=== PATIENT | male | born 1950 | race Caucasian/White ===

== ENCOUNTER 2019-01-09 08:06 | Day surgery (SDC) | payer MEDICARE ==
[~2019-01-09] VITALS: Ht 177.8 cm; Wt 101.0 kg
[~2019-01-09 08:06] MED LIST: ACCURETIC 12.51 TA1 PO; AMOXICILLIN 8751 TAB PO; ASPIRIN 32325 MG/TA1 PO; ASPIRIN E.C. 8181 MG PO; ATENOLOL100 MG PO; BYSTOLIC10 MG PO; CARDIZEM CD 24240 MG PO; CARTIA XT240 MG PO; DOXYCYCLINE 10100 MG PO; ELIQUIS 5MG PO; LEVAQUIN 750MG750 M1 PO; LIPITOR 10MG10 MG PO; LISINOPRIL20 MG PO; MEVACOR40 MG PO; NORVASC 10MG10 MG PO; PREDNISONE10 MG PO; PRINIVIL10 MG PO; PRINIVIL20 MG PO; PROVENTIL0.09 MG/A1 IH; RT ADVAIR 228 DISKUS IH; RT SPIRIVA18 MCG IH; SLEEP AID; TENORMIN100 MG PO; TRIAMTERENE/HCT1 TAB PO; TUDORZA IH; [UNRECOGNIZED DRUG - REMARK]
[2019-01-09 08:30] VITALS: BP 164/88; PULSE 71; TEMP 98.9
[2019-01-09 08:40] LABS: HEMATOCRIT 39.6 % (42.0-52.0); MEAN CELL VOLUME 94 fl (80.0-100.0); MEAN CORPUSCULAR HEMOGLOBIN 31 pg (27.0-31.0); MEAN CORPUSCULAR HGB CONC 33 g/dl (33.0-37.0); MEAN PLATELET VOLUME 9.1 fl (7.4-10.4); PLATELET COUNT 370 K/mm3 (130-400); RED BLOOD COUNT 4.22 M/mm3 (4.20-5.60); REDCELL DISTRIBUTION WIDTH-CV 13.9 % (11.5-14.5)
[2019-01-09 08:48] LABS: INR 1.9 (0.8-3.0); PROTHROMBIN TIME 22.5 SECONDS (9.7-12.8)
[2019-01-09] MEDS ORDERED: ASPIRIN 32325 MG/TAB PO (08:50)
[2019-01-09 08:52] LABS: CALCIUM 9.3 mg/dL (8.4-10.2); CREATININE, serum 0.94 (0.66-1.25); MAGNESIUM 2.1 mg/dL (1.6-2.3)
[2019-01-09] MEDS ORDERED: ELIQUIS 5MG PO (08:52)
[2019-01-09 09:22] LABS: THYROID STIMULATING HORMONE 2.85 uIU/mL (0.465-4.680)
[2019-01-09] MEDS ORDERED: COUMADIN 1010 MG/TAB PO (09:27)
[2019-01-09] MEDS ORDERED: TAMBOCOR 1100 MG/TAB PO (09:28)
[2019-01-09 09:35] VITALS: BP 134/79; PULSE 61
--- NOTE | 2019-01-09 09:35 | NUR ---
CV complete and report received from [facility]al[facility] medical laboratory technician RN. Pt resting well in bed.
[2019-01-09 09:50] VITALS: BP 134/79; BP 154/83; PULSE 61; PULSE 65
--- NOTE | 2019-01-09 10:00 | NUR ---
Pt has ambulated, voided and pat PO intake s n/v. PIV removed with catheter intact.
[2019-01-09 10:05] VITALS: BP 154/83; BP 164/90; PULSE 65; PULSE 67
--- NOTE | 2019-01-09 10:30 | NUR ---
Pt discharted per w/c by nurse with friend
[2019-01-11] MEDS ORDERED: COUMADIN 1010 MG/TAB PO (18:07)
== END 2019-01-09 13:14 | disposition home or self-care (01) ==
LOC: COL.CAR 08:06
PROVIDERS: Internal Medicine Cardiovascular Disease
DX: I48.1 Persistent atrial fibrillation (principal); I11.9 Hypertensive heart disease without heart failure; I08.1 Rheumatic disorders of both mitral and tricuspid valves; E78.2 Mixed hyperlipidemia; E87.1 Hypo-osmolality and hyponatremia; J18.9 Pneumonia, unspecified organism; J44.9 Chronic obstructive pulmonary disease, unspecified; K56.699 Other intestinal obstruction unspecified as to partial versus complete obstruction; K21.9 Gastro-esophageal reflux disease without esophagitis; M25.512 Pain in left shoulder; E66.9 Obesity, unspecified; D64.9 Anemia, unspecified; F10.10 Alcohol abuse, uncomplicated; Z79.899 Other long term (current) drug therapy; Z79.01 Long term (current) use of anticoagulants; Z79.82 Long term (current) use of aspirin; Z68.31 Body mass index [BMI] 31.0-31.9, adult; Z86.19 Personal history of other infectious and parasitic diseases
CPT/HCPCS: J2704

== ENCOUNTER 2019-01-12 20:03 | Outpatient (RCR) | payer MEDICARE ==
[2019-01-11 17:38] VITALS: BP 152/80; PULSE 70; TEMP 99.2
[~2019-01-12] VITALS: Ht 177.8 cm; Wt 100.6 kg
[2019-01-12 08:27] VITALS: BP 142/67; PULSE 61; TEMP 98.5
[~2019-01-12 20:03] MED LIST changes: +ASPIRIN 32325 MG/TAB PO; +COUMADIN 1010 MG/TAB PO; +TAMBOCOR 1100 MG/TAB PO
[2019-01-13 08:38] VITALS: BP 150/81; PULSE 60; TEMP 98.7
[2019-01-13 20:13] VITALS: BP 120/64; PULSE 65; TEMP 97.4
== END 2019-01-13 20:00 | disposition home or self-care (01) ==
LOC: EUO 01-13 20:00
DX: I48.1 Persistent atrial fibrillation (principal)
CPT/HCPCS: J1650

== ENCOUNTER → 2019-03-20 | Outpatient (CLI) | payer MEDICARE ==
--- NOTE | 2019-03-20 14:40 | NUR ---
Patient's EKG results faxed to Renée Garibay's office at this time. Spoke with her RN Hollie at this time. She states she spoke with Renée and the patient has Craft Manager in town so nothing further needs to be done. EKG results show Afib, patient states he was cardioverted on admission one month ago. Patient at this time is SOB and symptomatic. Douglas Galindo, AIR BRAKE MECH[employer]IC
== END ==
LOC: COL.CARD 14:07 → COL.LAB 14:07
DX: I11.0 Hypertensive heart disease with heart failure (principal); I50.32 Chronic diastolic (congestive) heart failure; J44.9 Chronic obstructive pulmonary disease, unspecified; I48.91 Unspecified atrial fibrillation

== ENCOUNTER 2020-02-21 09:14 | Inpatient (IN) | payer MEDICARE ==
[~2020-02-21] VITALS: Ht 177.8 cm; Wt 101.4 kg
[~2020-02-21 09:14] MED LIST changes: +BYSTOLIC5 MG PO; +COUMADIN 22.5 MG/TAB PO; +COUMADIN 5MG5 MG/TAB PO; +K-DUR20 MEQ PO; +LASIX 20MG TABL20 MG PO; +LASIX 40MG TABL40 MG PO; +TAMBOCOR50 MG PO
[2020-02-21 10:37] LABS: BASO # 0.2 (0.0-0.2); BASO % 1.2 % (0.0-2.0); EOS # 0.3 (0.0-0.7); EOS % 1.8 % (0-4.0); GRAN # 10.7 (1.4-6.5); GRAN % 79.1 % (42.2-75.2); HEMATOCRIT 40.4 % (42.0-52.0); HEMOGLOBIN 13.8 g/dl (13.5-18.0); LYMPH # 1.1 (1.2-3.4); LYMPH % 8.1 % (20.0-51.0); MEAN CELL VOLUME 90 fl (80.0-100.0); MEAN CORPUSCULAR HEMOGLOBIN 31 pg (27.0-31.0); MEAN CORPUSCULAR HGB CONC 34 g/dl (33.0-37.0); MEAN PLATELET VOLUME 9.1 fl (7.4-10.4); MONO # 1.3 (0.1-0.6); MONO % 9.3 % (1.7-9.3); PLATELET COUNT 393 K/mm3 (130-400); RED BLOOD COUNT 4.51 M/mm3 (4.20-5.60); REDCELL DISTRIBUTION WIDTH-CV 15.1 % (11.5-14.5)
[2020-02-21 10:48] LABS: PROTHROMBIN TIME 22.9 SECONDS (9.7-12.8)
[2020-02-21 10:51] LABS: PARTIAL THROMBOPLASTIN TIME 38.6 SECONDS (26.0-37.0)
[2020-02-21 11:31] LABS: ALANINE AMINOTRANSFERASE 15 U/L (4-49); ALBUMIN 4.5 gm/dL (3.5-5.0); ALKALINE PHOSPHATASE 159 U/L (50-136); ANION GAP 11 mmol/L (7-16); AST,SGOT 26 U/L (15-37); BILIRUBIN,TOTAL 1.3 mg/dL (0.0-1.0); BLOOD UREA NITROGEN 13 mg/dL (9-20); CALCIUM 9.4 mg/dL (8.4-10.2); CARBON DIOXIDE 26 mmol/L (22-30); CHLORIDE 98 mmol/L (98-107); CREATININE, serum 1.17 (0.66-1.25); GLUCOSE 134 mg/dL (74-106); POTASSIUM 3.1 mmol/L (3.4-5.0); SODIUM 135 mmol/L (137-145); TOTAL PROTEIN 8.7 gm/dL (6.4-8.2)
[2020-02-21 11:57] LABS: TROPONIN-I < 0.012 ng/mL (0.000-0.035)
[2020-02-21 12:14] LABS: ARTERIAL BLD GAS O2 SATURATION 93.4 % (92-100); ARTERIAL BLOOD GAS BASE EXCESS 3.1 (-2-2); ARTERIAL BLOOD GAS HCO3 25.9 meq/L (22-26)
[2020-02-21] MEDS ORDERED: LASIX 20MG TABL20 MG PO (14:03)
[2020-02-21] MEDS ORDERED: SLEEP AID PO (14:04)
[2020-02-21 16:30] VITALS: BP 125/62; PULSE 63; TEMP 98.1
--- NOTE | 2020-02-21 18:00 | NUR ---
Patients doing well since arriving back to the floor. Denies pain or nausea. He is not very good at knowing his medical history. He knows his medications but only if you say the name first and than he knows doses and how often he takes. No shortness of air since being placed on 2l of oxygen. No other changes at this time. Admission assessment completed. Medication rec updated. No other changes at this time. Call light within reach.
--- NOTE | 2020-02-21 18:54 | NUR ---
Pt. belongings received from security Maxim and placed in safe.
[2020-02-21 19:14] VITALS: BP 123/64; PULSE 69; TEMP 98
[2020-02-21 23:25] VITALS: BP 112/58; PULSE 63; TEMP 97.7
--- NOTE | 2020-02-22 00:40 | NUR ---
Pt resting in chair, independent in room. assesment completed and medications given per MAR. on oxygen via nasal cannula at 2 liters baseline. lung sounds are diminished, pt reports shortness of breath on excertion. heart sounds are regular and normal. pt denies chest pain or pain anywhere else. no other needs at this time, will continue to monitor.
[2020-02-22 03:12] VITALS: BP 118/56; PULSE 62; TEMP 97.6
--- NOTE | 2020-02-22 05:51 | NUR ---
pt sleeping in bed most of night, independent in room and called for any needs. pt reports shortness of breath is improved with oxygen. oxygen via nasal cannula at 2 liters. no other needs at this time, will continue to monitor.
[2020-02-22 08:00] VITALS: BP 122/67; PULSE 66; TEMP 97.9
[2020-02-22 08:19] LABS: CALCIUM 9.5 mg/dL (8.4-10.2); CREATININE, serum 1.27 (0.66-1.25); POTASSIUM 3.4 mmol/L (3.4-5.0)
--- NOTE | 2020-02-22 12:02 | NUR ---
Plan to return home-independently. SW met with patient in the room. Patient reports that he resides in [facility], [place]. Patient reports that he has a brother Ty who could help with decisions or emergency. Patient reports that he transports himself and has no additional needs. Patient denies the use of any DME and Denies the need for any HHS. Patient does not have a DPOA. Patient reports that he can do things on his own. Educated on services available to him.
--- NOTE | 2020-02-22 12:15 | NUR ---
[place] Patient reports that he resides alone and his Brother Ty is care support if needed as emergency. Patient rpoerts PCP is Dr. Renée Garibay, no upcoming appointment. Patient indicated that he usually obtains medications from [facility] in . Patient reports that he has 02 at 2.5 liters but no other DME. Patient declined HHS. Patient reports that he has transportation home and plans to drive himself. SW educated patient about services available to him.
[2020-02-22 12:55] VITALS: BP 118/61; PULSE 57; TEMP 97.3
[2020-02-22 15:39] VITALS: BP 124/58; PULSE 62; TEMP 97.7
[2020-02-22] MEDS ORDERED: ASPIRIN E.C. 8181 MG PO (16:47)
[2020-02-22] MEDS ORDERED: DOXYCYCLINE HY100 MG PO (16:48)
[2020-02-22] MEDS ORDERED: OMNICEF 300MG300 MG PO (16:48)
--- NOTE | 2020-02-22 17:16 | NUR ---
PATIENT WAS GIVEN HIS WALLET FROM THE [id number] WITH $211 IN IT. PATIENT WAS READ OVER THE DISCHARGE PAPERWORK AND TAKING THE PACKETS HOME WITH HIM. PATIENT HAS ALL OF HIS BELONINGS IN HIS POSESSION. PATIENT WAS WHEELED TO THE ENTRANCE BY STAFF.
== END 2020-02-22 17:17 | disposition home or self-care (01) | DRG 193 ==
LOC: COL.ER 09:14 → MEDICAL 10:48
PROVIDERS: Family Medicine
DX: J15.9 Unspecified bacterial pneumonia (principal); J96.21 Acute and chronic respiratory failure with hypoxia; J44.0 Chronic obstructive pulmonary disease with (acute) lower respiratory infection; I10 Essential (primary) hypertension; F17.210 Nicotine dependence, cigarettes, uncomplicated; Z20.828 Contact with and (suspected) exposure to other viral communicable diseases; E11.9 Type 2 diabetes mellitus without complications; Z79.82 Long term (current) use of aspirin; Z79.01 Long term (current) use of anticoagulants
CPT/HCPCS: 99223-AI; J0696; J1100; Q9967

== ENCOUNTER 2020-06-19 19:14 | Inpatient (IN) | payer MEDICARE ==
[~2020-06-19] VITALS: Ht 177.8 cm; Wt 103.4 kg
[~2020-06-19 19:14] MED LIST changes: +DOXYCYCLINE HY100 MG PO; +OMNICEF 300MG300 MG PO; +SLEEP AID PO
[2020-06-19 20:01] LABS: BASO # 0.1 (0.0-0.2); BASO % 1.7 % (0.0-2.0); EOS # 0.4 (0.0-0.7); EOS % 4.5 % (0-4.0); GRAN # 5.7 (1.4-6.5); GRAN % 71.3 % (42.2-75.2); HEMATOCRIT 34.6 % (42.0-52.0); HEMOGLOBIN 10.8 g/dl (13.5-18.0); LYMPH # 0.9 (1.2-3.4); LYMPH % 11.1 % (20.0-51.0); MEAN CELL VOLUME 101 fl (80.0-100.0); MEAN CORPUSCULAR HEMOGLOBIN 32 pg (27.0-31.0); MEAN CORPUSCULAR HGB CONC 31 g/dl (33.0-37.0); MONO # 0.9 (0.1-0.6); MONO % 10.9 % (1.7-9.3); PLATELET COUNT 277 K/mm3 (130-400); RED BLOOD COUNT 3.42 M/mm3 (4.20-5.60)
[2020-06-19 20:17] LABS: ALANINE AMINOTRANSFERASE 15 U/L (4-49); ALKALINE PHOSPHATASE 106 U/L (50-136); ANION GAP 11 mmol/L (7-16); AST,SGOT 25 U/L (15-37); BILIRUBIN,TOTAL 0.9 mg/dL (0.0-1.0); BLOOD UREA NITROGEN 28 mg/dL (9-20); CALCIUM 9.1 mg/dL (8.4-10.2); CARBON DIOXIDE 27 mmol/L (22-30); CHLORIDE 100 mmol/L (98-107); GLUCOSE 92 mg/dL (74-106); POTASSIUM 4.1 mmol/L (3.4-5.0); SODIUM 138 mmol/L (137-145); TOTAL PROTEIN 7.3 gm/dL (6.4-8.2)
[2020-06-19 20:19] LABS: INR 4.7 (0.8-3.0)
[2020-06-19 20:29] LABS: TROPONIN-I < 0.012 ng/mL (0.000-0.035)
[2020-06-19] MEDS ORDERED: CORDARONE200 MG/TAB PO (22:25)
[2020-06-19] MEDS ORDERED: PLAVIX 75MG TAB75 MG PO (22:26)
[2020-06-19] MEDS ORDERED: LIPITOR 80MG80 MG PO (22:26)
[2020-06-19] MEDS ORDERED: LASIX 20MG TABL20 MG PO (22:27)
[2020-06-19] MEDS ORDERED: IMDUR 30MG30 MG/TAB PO (22:27)
[2020-06-19] MEDS ORDERED: BYSTOLIC5 MG PO (22:28)
[2020-06-19] MEDS ORDERED: COUMADIN 5MG5 MG/TAB PO (22:29)
[2020-06-19] MEDS ORDERED: RANEXA 500MG T500 MG PO (22:31)
[2020-06-19 23:32] VITALS: BP 118/57; PULSE 66; TEMP 97.4
[2020-06-20 03:51] VITALS: BP 105/73; PULSE 67; TEMP 97.6
[2020-06-20 06:40] LABS: MEAN CELL VOLUME 101 fl (80.0-100.0); MEAN CORPUSCULAR HEMOGLOBIN 31 pg (27.0-31.0); MEAN CORPUSCULAR HGB CONC 31 g/dl (33.0-37.0); MEAN PLATELET VOLUME 9.3 fl (7.4-10.4); PLATELET COUNT 276 K/mm3 (130-400); RED BLOOD COUNT 3.23 M/mm3 (4.20-5.60); REDCELL DISTRIBUTION WIDTH-CV 17.9 % (11.5-14.5)
[2020-06-20 06:58] LABS: ALBUMIN 3.7 gm/dL (3.5-5.0); BILIRUBIN,TOTAL 1.1 mg/dL (0.0-1.0); CALCIUM 8.7 mg/dL (8.4-10.2); CREATININE, serum 1.46 (0.66-1.25); POTASSIUM 3.8 mmol/L (3.4-5.0); TOTAL PROTEIN 6.9 gm/dL (6.4-8.2)
[2020-06-20 06:59] LABS: HEMATOCRIT 32.5 % (42.0-52.0)
[2020-06-20 07:15] LABS: INR 4.5 (0.8-3.0)
[2020-06-20 07:32] VITALS: BP 108/55; PULSE 70; TEMP 97.4
[2020-06-20 08:12] LABS: PROTHROMBIN TIME 50.8 SECONDS (9.7-12.8)
[2020-06-20 09:47] LABS: ANISOCYTOSIS 1+; BAND 2 % (0-10); HYPOCHROMIA 2+; PLATELET ESTIMATE NORMAL (NORMAL)
[2020-06-20 09:48] LABS: LYMPHOCYTE 5 % (20.0-51.0); NEUTROPHILS 92 % (42.0-75.2)
[2020-06-20 11:54] VITALS: BP 104/62; PULSE 69; TEMP 97.7
[2020-06-20 15:44] VITALS: BP 107/61; PULSE 70; TEMP 97.3
[2020-06-20 19:28] VITALS: BP 100/50; PULSE 63; TEMP 97.5
[2020-06-20 23:45] VITALS: BP 137/66; PULSE 77; TEMP 97.6
[2020-06-21 04:14] VITALS: BP 96/55; PULSE 77; TEMP 97.3
[2020-06-21 06:35] LABS: BASO % 0.1 % (0.0-2.0); GRAN # 11.8 (1.4-6.5); GRAN % 85.3 % (42.2-75.2); LYMPH # 0.7 (1.2-3.4); LYMPH % 5.1 % (20.0-51.0); MEAN CELL VOLUME 99 fl (80.0-100.0); MEAN CORPUSCULAR HGB CONC 32 g/dl (33.0-37.0); MEAN PLATELET VOLUME 9.2 fl (7.4-10.4); MONO # 1.3 (0.1-0.6); MONO % 9.1 % (1.7-9.3); PLATELET COUNT 286 K/mm3 (130-400); RED BLOOD COUNT 3.07 M/mm3 (4.20-5.60); REDCELL DISTRIBUTION WIDTH-CV 18.1 % (11.5-14.5)
[2020-06-21 06:43] LABS: CALCIUM 8.7 mg/dL (8.4-10.2); CREATININE, serum 1.37 (0.66-1.25)
[2020-06-21 06:51] LABS: HEMATOCRIT 30.5 % (42.0-52.0); HEMOGLOBIN 9.8 g/dl (13.5-18.0); MEAN CORPUSCULAR HEMOGLOBIN 32 pg (27.0-31.0)
[2020-06-21 07:10] LABS: PROTHROMBIN TIME 33.6 SECONDS (9.7-12.8)
[2020-06-21 07:40] VITALS: BP 97/52; PULSE 64; TEMP 97.1
[2020-06-21 11:34] VITALS: BP 93/57; PULSE 61; TEMP 97.4
[2020-06-21 15:39] VITALS: BP 132/67; PULSE 77; TEMP 97.3
[2020-06-21 20:01] VITALS: BP 120/52; PULSE 65; TEMP 97.6
[2020-06-22] VITALS (7 sets, daily range): BP systolic 93–113; BP diastolic 41–78; PULSE 51–75; TEMP 97.1–98
[2020-06-22 06:24] LABS: BASO % 0.1 % (0.0-2.0); EOS % 0.1 % (0-4.0); GRAN # 10.2 (1.4-6.5); GRAN % 82.6 % (42.2-75.2); LYMPH % 8.1 % (20.0-51.0); MEAN CELL VOLUME 99 fl (80.0-100.0); MEAN CORPUSCULAR HGB CONC 32 g/dl (33.0-37.0); MEAN PLATELET VOLUME 9.2 fl (7.4-10.4); MONO # 1.1 (0.1-0.6); MONO % 8.5 % (1.7-9.3); PLATELET COUNT 297 K/mm3 (130-400); RED BLOOD COUNT 3.02 M/mm3 (4.20-5.60); REDCELL DISTRIBUTION WIDTH-CV 18.4 % (11.5-14.5)
[2020-06-22 06:29] LABS: INR 2.3 (0.8-3.0); PROTHROMBIN TIME 25.9 SECONDS (9.7-12.8)
[2020-06-22 06:36] LABS: HEMOGLOBIN 9.6 g/dl (13.5-18.0); MEAN CORPUSCULAR HEMOGLOBIN 32 pg (27.0-31.0)
[2020-06-22 06:38] LABS: CALCIUM 8.7 mg/dL (8.4-10.2); CREATININE, serum 1.52 (0.66-1.25); POTASSIUM 3.8 mmol/L (3.4-5.0)
[2020-06-22] MEDS ORDERED: LASIX 40MG TABL40 MG PO (09:24)
[2020-06-23 04:07] VITALS: BP 100/56; PULSE 66; TEMP 97.6
[2020-06-23 07:34] LABS: BASO % 0.1 % (0.0-2.0); EOS # 0.1 (0.0-0.7); EOS % 0.4 % (0-4.0); GRAN # 9.2 (1.4-6.5); GRAN % 78.7 % (42.2-75.2); LYMPH # 1.1 (1.2-3.4); LYMPH % 9.5 % (20.0-51.0); MEAN CELL VOLUME 100 fl (80.0-100.0); MEAN CORPUSCULAR HGB CONC 32 g/dl (33.0-37.0); MEAN PLATELET VOLUME 9.5 fl (7.4-10.4); MONO # 1.3 (0.1-0.6); MONO % 10.8 % (1.7-9.3); PLATELET COUNT 292 K/mm3 (130-400); RED BLOOD COUNT 2.91 M/mm3 (4.20-5.60); REDCELL DISTRIBUTION WIDTH-CV 18.3 % (11.5-14.5)
[2020-06-23 07:37] LABS: INR 1.9 (0.8-3.0); PROTHROMBIN TIME 21.5 SECONDS (9.7-12.8)
[2020-06-23 07:39] LABS: HEMATOCRIT 29.1 % (42.0-52.0); HEMOGLOBIN 9.4 g/dl (13.5-18.0); MEAN CORPUSCULAR HEMOGLOBIN 32 pg (27.0-31.0)
[2020-06-23 07:41] LABS: CALCIUM 8.6 mg/dL (8.4-10.2); CREATININE, serum 1.44 (0.66-1.25)
[2020-06-23 07:56] VITALS: BP 119/69; PULSE 89; TEMP 97.8
[2020-06-23] MEDS ORDERED: OXYGEN NASAL.CANN (09:15)
== END 2020-06-23 12:05 | disposition home or self-care (01) | DRG 314 ==
LOC: COL.ER 19:14 → SURG 22:16 → MEDICAL 06-22 11:21 → SURG 06-22 11:22 → MEDICAL 06-22 11:22 → SURG 06-23 12:05
PROVIDERS: Emergency Medicine; Student in an Organized Health Care Education/Training Program; ADMIT Student in an Organized Health Care Education/Training Program
DX: I27.22 Pulmonary hypertension due to left heart disease (principal); J96.01 Acute respiratory failure with hypoxia; I50.33 Acute on chronic diastolic (congestive) heart failure; I13.0 Hypertensive heart and chronic kidney disease with heart failure and stage 1 through stage 4 chronic kidney disease, or unspecified chronic kidney disease; J44.1 Chronic obstructive pulmonary disease with (acute) exacerbation; N17.9 Acute kidney failure, unspecified; J84.9 Interstitial pulmonary disease, unspecified; I27.23 Pulmonary hypertension due to lung diseases and hypoxia; N18.9 Chronic kidney disease, unspecified; I25.10 Atherosclerotic heart disease of native coronary artery without angina pectoris; D72.829 Elevated white blood cell count, unspecified; I48.0 Paroxysmal atrial fibrillation; R79.1 Abnormal coagulation profile; E66.9 Obesity, unspecified; E78.5 Hyperlipidemia, unspecified; Z20.822 Contact with and (suspected) exposure to COVID-19; Z79.01 Long term (current) use of anticoagulants; Z79.82 Long term (current) use of aspirin; Z68.32 Body mass index [BMI] 32.0-32.9, adult
CPT/HCPCS: OP; 99223-AI; 99232-AI; 99239; G0378; J1940; J2930; J7512

== ENCOUNTER → 2020-06-26 | Outpatient (CLI) | payer MEDICARE ==
[~2020-06-26] MED LIST changes: +CORDARONE200 MG/TAB PO; +IMDUR 30MG30 MG/TAB PO; +LIPITOR 80MG80 MG PO; +OXYGEN NASAL.CANN; +PLAVIX 75MG TAB75 MG PO; +RANEXA 500MG T500 MG PO
== END ==
LOC: ZCOL.LAB 11:48
DX: Z01.812 Encounter for preprocedural laboratory examination (principal); Z20.822 Contact with and (suspected) exposure to COVID-19; Z98.61 Coronary angioplasty status